=== PATIENT | female | born 1975 | race American Indian/Alaskan Native ===

== ENCOUNTER 2019-09-01 21:33 | Inpatient (IN) | payer SELFPAY ==
[2019-09-02] MEDS ORDERED: ACETAMINOPHEN 325 MG TAB PO ONE (00:04)
--- NOTE | 2019-09-02 00:06 | Emergency Department Report ---
<KRISTOFER JUNIORCAROL Humphreys - Last Filed: 09/02/19 04:58> ED Chest Pain HPI - General Chief Complaint: Chest Pain Stated Complaint: CHEST PAIN COUGH SOB Time Seen by Provider: 09/01/19 23:45 - Related Data Home Medications Medication Instructions Recorded Confirmed Last Taken No Known Home Medications [No 09/05/19 09/05/19 Unknown Reported Home Medications] Allergies Allergy/AdvReac Type Severity Reaction Status Date / Time shellfish derived Allergy Anaphylaxis Verified 09/01/19 22:54 sulfamethoxazole Allergy Anaphylaxis Verified 09/01/19 22:54 [From Bactrim] trimethoprim [From Bactrim] Allergy Anaphylaxis Verified 09/01/19 22:54 ED Past Medical Hx - Medications Home Medications: Home Medications Medication Instructions Recorded Confirmed Last Taken Type No Known Home Medications [No 09/05/19 09/05/19 Unknown History Reported Home Medications] ED Course - Reevaluation(s) Reevaluation #1: Patient was signed out to me from previous physician, Dr. Hsieh. Patient was originally planned for discharge however due to the finding on CT scan of bilateral pneumonia and her elevated WBCs the patient will be admitted to the hospitalist service for further evaluation treatment. I discussed all results with patient. I discussed plan of care with patient. Patient agrees with plan of care and admission. Patient to be admitted to the hospitalist service. 09/02/19 05:00 - Consultations Consultation #1: Hospitalist consulted for admission. Hospitalist to admit patient. 09/02/19 05:01 ED Medical Decision Making - Lab Data Result diagrams: 09/02/19 00:16 09/02/19 00:16 - Radiology Data CT chest wo con INDICATION / CLINICAL INFORMATION: Patient complains of SOB, chest pain x 1 day.. TECHNIQUE: Axial CT imaging of the chest was obtained without contrast. Coronal and sagittal reformatted imaging obtained and reviewed. All CT scans at this location are performed using CT dose reduction for ALARA by means of automated exposure control. COMPARISON: Chest radiograph, 09/02/2019 FINDINGS: CT chest without contrast demonstrates no obvious mediastinal or hilar adenopathy for noncontrasted exam. Thoracic aorta is of normal caliber. Heart size is normal. No pericardial effusion. There is small area of focal airspace disease in the right middle lobe, medial segment. Prominent patchy pulmonary opacities are seen throughout both lower lobes, slightly more prevalent in the right lower lobe. Upper lung zones are grossly clear. No pleural effusion. Imaging of the upper abdomen is grossly negative. No acute osseous abnormality. IMPRESSION: 1. There is focal parenchymal disease in the right middle lobe as well as di ffuse patchy parenchymal disease throughout both lower lobes, greater in the right lung base. The appearance is most suggestive for a multifocal bilateral pneumonia. TECHNICAL DATA: Inhaled administration followed by immediate static images of chest in multiple projections coordinated with breathing instructions. Followed by immediate static images of chest in multiple projections post- I.V. injection. ADDITIONAL TECHNICAL DATA: 16 millicuries of 133 Xenon is administered by inhalation. Pulmonary wash-in, equilibrium, and washout phases are performed. Then, 4.6 millicuries of 99m Tc MAA is administered intravenously. FINDINGS: Ventilation scan demonstrates normal wash-in equilibrium and washout. There is significant retention throughout both lung bases.. Perfusion scan demonstrates homogeneous uptake throughout both lungs. There are defects within both bases consistent with parenchymal disease noted on chest CT scan. IMPRESSION: Matched defects in both lung bases. Low probability for pulmonary thromboembolism. ED Disposition Clinical Impression: Bronchitis, Shortness of breath Chest pain Qualifiers: Chest pain type: unspecified Qualified Code(s): R07.9 - Chest pain, unspecified Pneumonia Qualifiers: Pneumonia type: due to unspecified organism Laterality: bilateral Lung location: unspecified part of lung Qualified Code(s): J18.9 - Pneumonia, unspecified organism Disposition: OP ADMIT IP TO THIS HOSP Is pt being admited?: Yes Does the pt Need Aspirin: No Condition: Serious Time of Disposition: 05:03 <JOE ISSA - Last Filed: 09/06/19 06:13> ED Chest Pain HPI - General Source: patient Mode of arrival: Ambulatory Limitations: No Limitations - History of Present Illness Initial Comments: 44-year-old -[place] female presents to the emergency department with complaint of a one-week history of a productive cough with greenish-yellow sputum, and a 1 day history of some midsternal chest pain and shortness of breath. She has a past medical history of hypertension and GERD. She is a tobacco smoker but denies any illicit drug use. She has tried some DayQuil for his symptoms without any relief. No recent international travel but she did fly from [place] yesterday. Denies having a primary care physician. Heart Score - HEART Score History: Slightly suspicious EKG: Normal Age: < 45 Risk factors: 1-2 risk factors Troponin: < normal limit HEART Score: 1 - Critical Actions Critical Actions: 0-3 pts:0.9-1.7%risk of adverse cardiac event.Candidate for discharge ED Review of Systems ROS: Stated complaint: CHEST PAIN COUGH SOB Other details as noted in HPI Comment: All other systems reviewed and negative Constitutional: chills, fever Eyes: denies: eye pain, vision change ENT: denies: ear pain, throat pain Respiratory: cough, shortness of breath Cardiovascular: chest pain. denies: palpitations, edema Gastrointestinal: denies: abdominal pain, vomiting Genitourinary: denies: dysuria, discharge Musculoskeletal: denies: back pain, arthralgia Skin: denies: rash, lesions Neurological: denies: headache, weakness ED Past Medical Hx - Past Medical History Previous Medical History?: No - Surgical History Past Surgical History?: No - Social History Smoking Status: Current Every Day Smoker Substance Use Type: Alcohol ED Physical Exam - General Limitations: No Limitations - Other Other exam information: GENERAL: The patient is well-developed well-nourished. HENT: Normocephalic. Atraumatic. Patient has moist mucous membranes. EYES: Extraocular motions are intact. NECK: Supple. Trachea is midline. CHEST/LUNGS: Mild wheezing throughout the chest. No tachypnea or accessory muscle use. Productive cough heard during examination. There is no respiratory distress noted. HEART/CARDIOVASCULAR: Regular. There is mild tachycardia. ABDOMEN: Abdomen is soft, nontender. Patient has normal bowel sounds. There is no abdominal distention. SKIN: Skin is warm and dry. NEURO: The patient is awake, alert, and oriented. The patient is cooperative. The patient has no focal neurologic deficits. Normal speech. MUSCULOSKELETAL: There is no tenderness or deformity. There is no evidence of acute injury. ED Course Vital Signs 09/01/19 09/01/19 09/02/19 22:27 23:12 00:27 Temperature 98.1 F 100.5 F H Pulse Rate 107 H 106 H Respiratory 18 Rate Blood Pressure 135/84 O2 Sat by Pulse 100 98 97 Oximetry 09/02/19 09/02/19 09/02/19 00:30 00:51 01:00 Temperature Pulse Rate Respiratory 18 Rate Blood Pressure 134/87 130/80 O2 Sat by Pulse 97 97 Oximetry 09/02/19 09/02/19 09/02/19 01:30 02:00 02:30 Temperature Pulse Rate Respiratory Rate Blood Pressure 125/76 133/82 136/76 O2 Sat by Pulse 97 97 Oximetry 09/02/19 09/02/19 09/02/19 04:10 04:30 05:00 Temperature Pulse Rate Respiratory Rate Blood Pressure 133/82 117/78 120/79 O2 Sat by Pulse 99 97 95 Oximetry 09/02/19 09/02/19 09/02/19 05:30 06:00 06:20 Temperature Pulse Rate 96 H Respiratory 22 Rate Blood Pressure 122/81 120/72 O2 Sat by Pulse 97 97 96 Oximetry 09/02/19 09/02/19 09/02/19 06:30 06:40 06:50 Temperature Pulse Rate 89 89 89 Respiratory 25 H 27 H 24 Rate Blood Pressure 124/85 124/85 124/85 O2 Sat by Pulse 97 95 97 Oximetry 09/02/19 09/02/19 09/02/19 07:00 07:10 07:20 Temperature Pulse Rate 89 88 90 Respiratory 27 H 24 21 Rate Blood Pressure 124/78 124/78 124/78 O2 Sat by Pulse 97 97 96 Oximetry 09/02/19 09/02/19 09/02/19 07:30 07:40 07:50 Temperature Pulse Rate 89 87 97 H Respiratory 25 H 25 H 20 Rate Blood Pressure 121/84 121/84 121/84 O2 Sat by Pulse 98 98 96 Oximetry 09/02/19 09/02/19 09/02/19 08:00 08:10 08:20 Temperature Pulse Rate 96 H 89 83 Respiratory 24 29 H 29 H Rate Blood Pressure 132/84 132/84 132/84 O2 Sat by Pulse 93 94 99 Oximetry 09/02/19 09/02/19 09/02/19 08:30 08:40 08:50 Temperature Pulse Rate 82 87 85 Respiratory 29 H 24 27 H Rate Blood Pressure 127/81 127/81 127/81 O2 Sat by Pulse 96 96 Oximetry 09/02/19 09/02/19 09/02/19 09:00 09:10 09:37 Temperature 98.9 F Pulse Rate 99 H 89 90 Respiratory 21 27 H 20 Rate Blood Pressure 129/87 129/87 123/85 O2 Sat by Pulse 100 94 96 Oximetry MIGUEL score - Miguel Score Age > 65: (0) No Aspirin use within the Past 7 Days: (0) No 3 or more CAD Risk Factors: (0) No 2 or more Angina events in past 24 hrs: (1) Yes Known CAD with more than 50% Stenosis: (0) No Elevated Cardiac Markers: (0) No ST Deviation Greater than 0.5mm: (0) No MIGUEL Score: 1 ED Medical Decision Making - Lab Data Result diagrams: 09/05/19 04:08 09/05/19 04:08 - EKG Data -: EKG Interpreted by Me EKG shows normal: sinus rhythm, axis, intervals, QRS complexes, ST-T waves Rate: normal - EKG Data When compared to previous EKG there are: previous EKG unavailable Interpretation: normal EKG - Radiology Data Radiology results: image reviewed interpreted by me: Chest x-ray does not show any acute process. There are no pleural effusions, obvious pneumonia and there is no pneumothorax. - Medical Decision Making This patient presents with a one-week history of a productive cough and a 24- hour history of some intermittent chest pains and shortness of breath. The pa tiejaylen has some mild wheezing and a auditory productive cough but does not appear in any respiratory distress. She presents with a low-grade fever. An EKG was done that does not show any signs of ST elevation [place]. Chest x-ray does not show any obvious pneumonia, pleural effusions, pneumothorax, or any other acute process. Patient has a 23,000 white blood cell count. Normal metabolic panel. Negative troponin x1 thus far. She has an elevated d-dimer level of about 800. She will have a VQ scan to rule out pulmonary embolism secondary to a shellfish allergy with anaphylactic reaction. The patient will also have a CT scan of the chest without contrast. This patient has been signed out to my colleague, Dr. Greene, to follow the imaging studies and assist with disposition. - Differential Diagnosis Sepsis, CAP, Viral Pneumonia, Bronchitis Critical Care Time: No Critical care attestation.: If time is entered above; I have spent that time in minutes in the direct care of this critically ill patient, excluding procedure time. ED Disposition Is pt being admited?: Yes Time of Disposition: 02:57
--- NOTE | 2019-09-02 00:50 | XRay Report ---
CHEST 1 VIEW INDICATION / CLINICAL INFORMATION: CP. COMPARISON: None available. FINDINGS: SUPPORT DEVICES: None. HEART / MEDIASTINUM: No significant abnormality. LUNGS / PLEURA: There is mild interstitial prominence bilaterally. This is probably pulmonary vascula r congestion. No evidence for pneumonia or significant pleural effusion. No pneumothorax. ADDITIONAL FINDINGS: There is a skinfold overlying the right upper lung simulating a pneumothorax. IMPRESSION: 1. Mild pulmonary vascular congestion. Signer Name: Faith Brasher MD Signed: 09/02/2019 12:46 AM Workstation Name: [id number]
[2019-09-02] MEDS ORDERED: MORPHINE 4 MG/1 ML INJ IV ONE (00:51)
[2019-09-02 00:56] LABS: Hematocrit 33.7 % (30.3-42.9); Mean Corpuscular HGB Conc 33 % (30-34); Mean Corpuscular Volume 86 fl (79-97); Platelet Count 430 K/mm3 (140-440); Red Blood Count 3.91 M/mm3 (3.65-5.03); Red Cell Distribution Width 15.8 % (13.2-15.2)
[2019-09-02 01:05] LABS: BUN/Creatinine Ratio 10; Blood Urea Nitrogen 7 mg/dL (7-17); Calcium 9.3 mg/dL (8.4-10.2); Hemolysis Index 0
[2019-09-02] MEDS ORDERED: guaiFENesin/CODEINE 100-10MG ORAL LIQD 5 ML PO ONE (01:57)
[2019-09-02] MEDS ORDERED: cefTRIAXone/NS 1 GM/50 ML 1 GM/50 ML BAG IV ONE (02:07)
[2019-09-02] MEDS ORDERED: AZITHROMYCIN 500 MG in SODIUM CHLORIDE 0.9% 250ML 250 ML IV ONE (02:47)
--- NOTE | 2019-09-02 03:27 | Cat Scan Report ---
CT chest wo con INDICATION / CLINICAL INFORMATION: Patient complains of SOB, chest pain x 1 day.. TECHNIQUE: Axial CT imaging of the chest was obtained without contrast. Coronal and sagittal reformatted imaging obtained and reviewed. All CT scans at this location are performed using CT dose reduction for ALAR A by means of automated exposure control. COMPARISON: Chest radiograph, 09/02/2019 FINDINGS: CT chest without contrast demonstrates no obvious mediastinal or hilar adenopathy for noncontrasted e xam. Thoracic aorta is of normal caliber. Heart size is normal. No pericardial effusion. There is small area of focal airspace disease in the right middle lobe, medial segment. Prominent pat jonnathan pulmonary opacities are seen throughout both lower lobes, slightly more prevalent in the right lo wer lobe. Upper lung zones are grossly clear. No pleural effusion. Imaging of the upper abdomen is grossly negative. No acute osseous abnormality. IMPRESSION: 1. There is focal parenchymal disease in the right middle lobe as well as diffuse patchy parenchymal disease throughout both lower lobes, greater in the right lung base. The appearance is most suggestiv e for a multifocal bilateral pneumonia. Signer Name: Faith Brasher MD Signed: 09/02/2019 3:22 AM Workstation Name: [id number]
--- NOTE | 2019-09-02 03:59 | Nuclear Medicine Report ---
CLINICAL DATA: Shortness of breath elevated d-dimer TECHNICAL DATA: Inhaled administration followed by immediate static images of chest in multiple projections coordinat ed with breathing instructions. Followed by immediate static images of chest in multiple projections post- I.V. injection. ADDITIONAL TECHNICAL DATA: 16 millicuries of 133 Xenon is administered by inhalation. Pulmonary wash-in, equilibrium, and washout phases are performed. Then, 4.6 millicuries of 99m Tc MAA is administered intravenously. FINDINGS: Ventilation scan demonstrates normal wash-in equilibrium and washout. There is significant retention throughout both lung bases.. Perfusion scan demonstrates homogeneous uptake throughout both lungs. There are defects within both b ases consistent with parenchymal disease noted on chest CT scan. IMPRESSION: Matched defects in both lung bases. Low probability for pulmonary thromboembolism. Signer Name: Faith Brasher MD Signed: 09/02/2019 3:55 AM Workstation Name: [id number]
[2019-09-02 04:06] LABS: Basophils % (Manual) 0 % (0.0-1.8); Eosinophils % (Manual) 0 % (0.0-4.3); Total Cells Counted 200
[2019-09-02 04:07] LABS: Anisocytosis 1+; Platelet Estimate Consistent w Auto
--- NOTE | 2019-09-02 05:22 | History and Physical Report ---
History of Present Illness History of present illness: 44-year-old woman history of hypertension comes emergency room with complaints of cough, fever. Patient states she has been coughing for the last 8 days, sputum became productive of yellow phlegm over the last 4 days, also complain of shortness of breath, fever. She traveled from [place] on Friday Patient will be admitted for multifocal pneumonia Review Of Systems: Constitutional: no weight loss, fever, chills Ears, eyes, nose, mouth and throat: no nasal congestion, no nasal discharge, no sinus pressure, blurry vision, diplopia Neck: No neck pain or rigidity. Cardiovascular: No palpitations, chest pain Respiratory:+o shortness of breath, cough Gastrointestinal: No hematochezia Genitourinary : no dysuria, frequency Musculoskeletal: no muscle ache , joint pain Integumentary: no rash, no pruritis Neurological: no parathesias, focal weakness Endocrine: no cold or heat intolerance, no polyuria or polydipsia Hematologic/Lymphatic: no easy bruising, no easy bleeding, no gland swelling Allergic/Immunologic: no urticaria, no angioedema. PAST MEDICAL HISTORY: Hypertension PAST SURGICAL HISTORY: None SOCIAL HISTORY: Social alcohol, smokes 1/3 pack a day, no drugs FAMILY HISTORY: Hypertension Medications and Allergies Allergies Allergy/AdvReac Type Severity Reaction Status Date / Time shellfish derived Allergy Anaphylaxis Verified 09/01/19 22:54 sulfamethoxazole Allergy Anaphylaxis Verified 09/01/19 22:54 [From Bactrim] trimethoprim [From Bactrim] Allergy Anaphylaxis Verified 09/01/19 22:54 Exam - Physical Exam Narrative exam: Gen. appearance: Patient lying in bed, no apparent distress HEENT: Normocephalic, atraumatic, pupils equally round and reactive to light, extraocular movement intact, and no sclericterus,. No JVD or thyromegaly or nodule,neck supple, no carotid bruit ,mucous membranes moist, no exudate or erythema Heart: S1, S2, regular rate and rhythm Lungs: Crackles bilaterally, breathing comfortable Abdomen: Positive bowel sounds, nontender, nondistended, no organomegaly Extremity: no edema, cyanosis, clubbing Skin: No rash, nodules, warm, dry Neuro: Cranial nerves II to XII intact, speech is fluent, moves extremities, sensory intact - Constitutional Vitals: Temp Pulse Resp BP Pulse Ox 100.5 F H 106 H 18 135/84 98 09/01/19 23:12 09/01/19 23:12 09/01/19 22:27 09/01/19 22:27 09/01/19 23:12 Results - Labs CBC & Chem 7: 09/02/19 00:16 09/02/19 00:16 Labs: Abnormal lab results 09/02/19 09/02/19 09/02/19 Range/Units 00:16 00:16 00:16 WBC 23.4 H (4.5-11.0) K/mm3 RDW 15.8 H (13.2-15.2) % Seg Neuts % (Manual) 93.5 H (40.0-70.0) % Lymphocytes % (Manual) 3.5 L (13.4-35.0) % Seg Neutrophils # Man 21.9 H (1.8-7.7) K/mm3 Lymphocytes # (Manual) 0.8 L (1.2-5.4) K/mm3 D-Dimer 801.37 H (0-234) ng/mlDDU Sodium 134 L (137-145) mmol/L Chloride 95.9 L (98-107) mmol/L Glucose 107 H (65-100) mg/dL - Imaging and Cardiology EKG: image reviewed Chest x-ray: report reviewed CT scan - chest: report reviewed Assessment and Plan V/Q low probability for PE Assessment Bilateral multifocal pneumonia Start Rocephin, azithromycin, droplet precautions Consult ID, nebulizer treatment Hypertension Continue outpatient medications DVT prophylaxis
[2019-09-02] MEDS ORDERED: ONDANSETRON 4 MG/2 ML INJ IV PRN (06:17)
[2019-09-02 07:28] LABS: Hematocrit 33.6 % (30.3-42.9); Hemoglobin 10.9 gm/dl (10.1-14.3); Mean Corpuscular HGB Conc 32 % (30-34); Mean Corpuscular Volume 86 fl (79-97); Platelet Count 395 K/mm3 (140-440); Red Blood Count 3.89 M/mm3 (3.65-5.03); Red Cell Distribution Width 15.8 % (13.2-15.2)
[2019-09-02 07:41] LABS: BUN/Creatinine Ratio 8; Blood Urea Nitrogen 5 mg/dL (7-17); Calcium 8.5 mg/dL (8.4-10.2); Hemolysis Index 7
--- NOTE | 2019-09-02 08:18 | Progress Note ---
Assessment and Plan Assessment and plan: Patient is a 44 yo woman with a history of hypertension and tobacco dependency who presents with sob, cough and fever. She travelled from [place] to [place] on Friday. Patient qualifies for sepsis. * 100.5F, WBC 23.4, HR 106, D-Dimer 801.37 * pCXR IMPRESSION: 1. Mild pulmonary vascular congestion. * CT chest without contrast IMPRESSION: 1. There is focal parenchymal disease in the right middle lobe as well as diffuse patchy parenchymal disease throughout both lower lobes, greater in the right lung base. The appearance is most suggestive for a multifocal bilateral pneumonia. * V/Q IMPRESSION: Matched defects in both lung bases. Low probability for pulmonary thromboembolism. * Rapid flu negative Bilateral multifocal pneumonia with SEPSIS, poa: Start Rocephin, azithromycin, droplet precautions, ID consulted as rule out Coronovirus, in droplet precautions, nebulizer treatment, FLU pcr ordered, follow cultures Hypertension: Continue outpatient medications DVT prophylaxis reviewed History Interval history: Patient was seen and examined. Follow-up on current diagnosis of Pneumonia. Overnight uneventful as no events directly reported to me. Patient denies any chest pain, shortness breath, nausea/vomiting or severe headaches. Imaging, nursing note, chart, labs and old chart reviewed. Discussed with patient. Hospitalist Physical - Physical exam Narrative exam: Gen: WDWN, ill appearing, Awake, Alert, Orientated HEENT: NCAT, EOMI, PERRL, OP Clear Neck: supple, no adenopathy, no thyromegaly, no JVD CVS/Heart: RT, normal S1S2, pulses present bilaterally Chest/Lungs: diminished bs bilaterally, Symmetrical chest expansion, good air entry bilaterally GI/Abdomen: soft, NTND, good bowel sounds, no guarding or rebound /Bladder: no suprapubic tenderness, no CVA or paraspinal tenderness Extermity/Skin: no c/c/e, no obvious rash MSK: FROM x 4 Neuro: CN 2-12 grossly intact, no new focal deficits Psych: calm - Constitutional Vitals: Temp Pulse Resp BP Pulse Ox 100.5 F H 106 H 18 120/72 97 09/01/19 23:12 09/01/19 23:12 09/02/19 00:51 09/02/19 06:00 09/02/19 06:00 ILIANA score - Iliana Score Age > 65: (0) No Aspirin use within the Past 7 Days: (0) No 3 or more CAD Risk Factors: (0) No 2 or more Angina events in past 24 hrs: (1) Yes Known CAD with more than 50% Stenosis: (0) No Elevated Cardiac Markers: (0) No ST Deviation Greater than 0.5mm: (0) No ILIANA Score: 1 Results - Labs CBC & Chem 7: 09/02/19 07:00 09/02/19 07:00 Labs: Laboratory Last Values WBC 24.0 K/mm3 (4.5-11.0) H 09/02/19 07:00 RBC 3.89 M/mm3 (3.65-5.03) 09/02/19 07:00 Hgb 10.9 gm/dl (10.1-14.3) 09/02/19 07:00 Hct 33.6 % (30.3-42.9) 09/02/19 07:00 MCV 86 fl (79-97) 09/02/19 07:00 MCH 28 pg (28-32) 09/02/19 07:00 MCHC 32 % (30-34) 09/02/19 07:00 RDW 15.8 % (13.2-15.2) H 09/02/19 07:00 Plt Count 395 K/mm3 (140-440) 09/02/19 07:00 Add Manual Diff Complete 09/02/19 00:16 Total Counted 200 09/02/19 00:16 Seg Neuts % (Manual) 93.5 % (40.0-70.0) H 09/02/19 00:16 Band Neutrophils % 0 % 09/02/19 00:16 Lymphocytes % (Manual) 3.5 % (13.4-35.0) L 09/02/19 00:16 Reactive Lymphs % (Man) 0 % 09/02/19 00:16 Monocytes % (Manual) 3.0 % (0.0-7.3) 09/02/19 00:16 Eosinophils % (Manual) 0 % (0.0-4.3) 09/02/19 00:16 Basophils % (Manual) 0 % (0.0-1.8) 09/02/19 00:16 Metamyelocytes % 0 % 09/02/19 00:16 Myelocytes % 0 % 09/02/19 00:16 Promyelocytes % 0 % 09/02/19 00:16 Blast Cells % 0 % 09/02/19 00:16 Nucleated RBC % Not Reportable 09/02/19 00:16 Seg Neutrophils # Man 21.9 K/mm3 (1.8-7.7) H 09/02/19 00:16 Band Neutrophils # 0.0 K/mm3 09/02/19 00:16 Lymphocytes # (Manual) 0.8 K/mm3 (1.2-5.4) L 09/02/19 00:16 Abs React Lymphs (Man) 0.0 K/mm3 09/02/19 00:16 Monocytes # (Manual) 0.7 K/mm3 (0.0-0.8) 09/02/19 00:16 Eosinophils # (Manual) 0.0 K/mm3 (0.0-0.4) 09/02/19 00:16 Basophils # (Manual) 0.0 K/mm3 (0.0-0.1) 09/02/19 00:16 Metamyelocytes # 0.0 K/mm3 09/02/19 00:16 Myelocytes # 0.0 K/mm3 09/02/19 00:16 Promyelocytes # 0.0 K/mm3 09/02/19 00:16 Blast Cells # 0.0 K/mm3 09/02/19 00:16 WBC Morphology Not Reportable 09/02/19 00:16 Hypersegmented Neuts Not Reportable 09/02/19 00:16 Hyposegmented Neuts Not Reportable 09/02/19 00:16 Hypogranular Neuts Not Reportable 09/02/19 00:16 Smudge Cells Not Reportable 09/02/19 00:16 Toxic Granulation Not Reportable 09/02/19 00:16 Toxic Vacuolation Not Reportable 09/02/19 00:16 Dohle Bodies Not Reportable 09/02/19 00:16 Pelger-Huet Anomaly Not Reportable 09/02/19 00:16 Bipin Rods Not Reportable 09/02/19 00:16 Platelet Estimate Consistent w auto 09/02/19 00:16 Clumped Platelets Not Reportable 09/02/19 00:16 Plt Clumps, EDTA Not Reportable 09/02/19 00:16 Large Platelets Not Reportable 09/02/19 00:16 Giant Platelets Not Reportable 09/02/19 00:16 Platelet Satelliting Not Reportable 09/02/19 00:16 Plt Morphology Comment Not Reportable 09/02/19 00:16 RBC Morphology Not Reportable 09/02/19 00:16 Dimorphic RBCs Not Reportable 09/02/19 00:16 Polychromasia Not Reportable 09/02/19 00:16 Hypochromasia Not Reportable 09/02/19 00:16 Poikilocytosis Not Reportable 09/02/19 00:16 Anisocytosis 1+ 09/02/19 00:16 Microcytosis Not Reportable 09/02/19 00:16 Macrocytosis Not Reportable 09/02/19 00:16 Spherocytes Not Reportable 09/02/19 00:16 Pappenheimer Bodies Not Reportable 09/02/19 00:16 Sickle Cells Not Reportable 09/02/19 00:16 Target Cells Not Reportable 09/02/19 00:16 Tear Drop Cells Not Reportable 09/02/19 00:16 Ovalocytes Not Reportable 09/02/19 00:16 Helmet Cells Not Reportable 09/02/19 00:16 V[place] Bodies Not Reportable 09/02/19 00:16 [place] Rings Not Reportable 09/02/19 00:16 [place] Cells Not Reportable 09/02/19 00:16 Bite Cells Not Reportable 09/02/19 00:16 Crenated Cell Not Reportable 09/02/19 00:16 Elliptocytes Not Reportable 09/02/19 00:16 Acanthocytes (Spur) Not Reportable 09/02/19 00:16 Rouleaux Not Reportable 09/02/19 00:16 Hemoglobin C Crystals Not Reportable 09/02/19 00:16 Schistocytes Not Reportable 09/02/19 00:16 Malaria parasites Not Reportable 09/02/19 00:16 Devante Bodies Not Reportable 09/02/19 00:16 Hem Pathologist Commnt No 09/02/19 00:16 D-Dimer 801.37 ng/mlDDU (0-234) H 09/02/19 00:16 Sodium 134 mmol/L (137-145) L 09/02/19 07:00 Potassium 3.9 mmol/L (3.6-5.0) 09/02/19 07:00 Chloride 99.0 mmol/L (98-107) 09/02/19 07:00 Carbon Dioxide 22 mmol/L (22-30) 09/02/19 07:00 Anion Gap 17 mmol/L 09/02/19 07:00 BUN 5 mg/dL (7-17) L 09/02/19 07:00 Creatinine 0.6 mg/dL (0.7-1.2) L 09/02/19 07:00 Estimated GFR > 60 ml/min 09/02/19 07:00 BUN/Creatinine Ratio 8 % 09/02/19 07:00 Glucose 97 mg/dL (65-100) 09/02/19 07:00 Lactic Acid 0.80 mmol/L (0.7-2.0) 09/02/19 02:21 Calcium 8.5 mg/dL (8.4-10.2) 09/02/19 07:00 Troponin T < 0.010 ng/mL (0.00-0.029) 09/02/19 03:39 NT-Pro-B Natriuret Pep 46.87 pg/mL (0-450) 09/02/19 00:56 HCG, Qual Negative (Negative) 09/02/19 00:16 Influenza A (Rapid) Negative (Negative) 09/02/19 Unknown Influenza B (Rapid) Negative (Negative) 09/02/19 Unknown [place]/IV: IV Catheter Type [Right INT / Saline Lock Antecubital] IV Catheter Type [Right Hand] INT / Saline Lock Active Medications - Current Medications Current Medications: Generic Name Dose Route Start Last Admin Trade Name Freq PRN Reason Stop Dose Admin Acetaminophen 650 mg 09/02/19 06:17 Tylenol PO Q4H PRN Pain MILD(1-3)/Fever >100.5/GAMBINO Albuterol/Ipratropium 1 ampul 09/02/19 08:00 Duoneb *Not For Prn Use* IH Q6HRT [facility] Azithromycin 500 mg 09/02/19 10:00 Zithromax PO DAILY [facility] Enoxaparin Sodium 40 mg 09/02/19 10:00 Enoxaparin SUB-Q QDAY [facility] Ceftriaxone Sodium 1 gm in 50 mls @ 100 mls/hr 09/02/19 10:00 Rocephin/Ns 1 Gm/50 Ml IV Q24HR [facility] Protocol Ondansetron HCl 4 mg 09/02/19 06:17 Zofran IV Q8H PRN Nausea And Vomiting Sodium Chloride 10 ml 09/02/19 10:00 Sodium Chloride Flush Syringe 10 Ml IV BID [facility] Sodium Chloride 10 ml 09/02/19 06:17 Sodium Chloride Flush Syringe 10 Ml IV PRN PRN LINE FLUSH
[2019-09-02 08:26] LABS: Band Neutrophils # (Manual) 0.2 K/mm3; Basophils % (Manual) 0 % (0.0-1.8); Eosinophils % (Manual) 0 % (0.0-4.3); Total Cells Counted 100
[2019-09-02 08:27] LABS: Platelet Estimate Consistent w Auto
[2019-09-02] MEDS: IPRATROPIUM/ALBUTEROL SULFATE 3 ML AMPUL.NEB IH SCH ×3 (09:19→20:39)
[2019-09-02] MEDS: AZITHROMYCIN 250 MG TAB PO SCH (11:21)
[2019-09-02] MEDS: ENOXAPARIN 40 MG/0.4 ML INJ SUB-Q SCH (11:22)
[2019-09-02] MEDS: cefTRIAXone/NS 1 GM/50 ML 1 GM/50 ML BAG IV SCH (12:18)
[2019-09-02] MEDS: ACETAMINOPHEN 325 MG TAB PO PRN (15:38)
[2019-09-02] MEDS ORDERED: VANCOMYCIN 1,500 MG in SODIUM CHLORIDE 0.9% 500 ML 500 ML IV ONE (16:12)
--- NOTE | 2019-09-02 16:16 | Consultation ---
History of Present Illness - Reason for Consult Consult date: 09/02/19 Sepsis, pneumonia Requesting physician: MICHAEL TIRADO - History of Present Illness The patient is a 44-year-old female with hypertension who is originally from [place] came into the emergency room yesterday with complaints of cough, fever and shortness of breath. Her symptoms have been going on for almost 2 weeks and gradually worsening. She is now producing yellow-greenish sputum and also having shortness of breath. She denies having received a flu shot. She is a smoker, 1 pack of cigarettes lasts her 3 days. She had a fever of 100.[address] revealed a bilateral pneumonia but mainly on the right side. WBC shows leukocytosis. She lives in [place]. She is a student. States her niece was recently sick. Review of Systems: General: fever, chills HEENT: no new visual disturbance Respiratory: + cough, sputum, shortness of breath Cardiovascular: No chest pain, syncope Gastrointestinal: No nausea, vomiting or diarrhea Genitourinary: No dysuria or hematuria Musculoskeletal: No new or worsening neck pain or back pain Neurologic: No headaches, seizures Hematologic: No easy bruising or bleeding Endocrine: No night sweats or acute weight loss Skin: negative for rash, jaundice Psychiatric: No suicidal or homicidal ideation Medications and Allergies Allergies Allergy/AdvReac Type Severity Reaction Status Date / Time shellfish derived Allergy Anaphylaxis Verified 09/01/19 22:54 sulfamethoxazole Allergy Anaphylaxis Verified 09/01/19 22:54 [From Bactrim] trimethoprim [From Bactrim] Allergy Anaphylaxis Verified 09/01/19 22:54 Active Meds: Active Medications Acetaminophen (Tylenol) 650 mg PO Q4H PRN PRN Reason: Pain MILD(1-3)/Fever >100.5/GAMBINO Last Admin: 09/02/19 15:38 Dose: 650 mg Documented by: Albuterol/Ipratropium (Duoneb *Not For Prn Use*) 1 ampul IH Q6HRT [facility] Last Admin: 09/02/19 13:36 Dose: 1 ampul Documented by: Azithromycin (Zithromax) 500 mg PO DAILY [facility] Stop: 09/06/19 10:01 Last Admin: 09/02/19 11:21 Dose: 500 mg Documented by: Benzonatate (Tessalon Perles) 100 mg PO Q8HR [facility] Enoxaparin Sodium (Enoxaparin) 40 mg SUB-Q QDAY [facility] Last Admin: 09/02/19 11:22 Dose: 40 mg Documented by: Ceftriaxone Sodium (Rocephin/Ns 1 Gm/50 Ml) 1 gm in 50 mls @ 100 mls/hr IV Q24HR [facility]; Protocol Last Admin: 09/02/19 12:18 Dose: 100 mls/hr Documented by: Vancomycin HCl 1,500 mg/ (Sodium Chloride) 530 mls @ 333 mls/hr IV ONCE ONE; P rotocol Stop: 09/02/19 17:47 Ondansetron HCl (Zofran) 4 mg IV Q8H PRN PRN Reason: Nausea And Vomiting Sodium Chloride (Sodium Chloride Flush Syringe 10 Ml) 10 ml IV BID [facility] Last Admin: 09/02/19 11:22 Dose: 10 ml Documented by: Sodium Chloride (Sodium Chloride Flush Syringe 10 Ml) 10 ml IV PRN PRN PRN Reason: LINE FLUSH Physical Examination - Physical Exam Narrative exam: Physical Exam: Constitutional: Alert, cooperative. No acute distress Head, Ears, Nose: Normocephalic, atraumatic. External ears, nose normal Eyes: Conjunctivae/corneas clear. No icterus. No ptosis. Neck: Supple, no meningeal signs Cardiovascular: S1, S2 normal. Respiratory: b/l rhonchi GI: Soft, non-tender; bowel sounds normal. No peritoneal signs Musculoskeletal: No pedal edema, no cyanosis. Skin: No rash or abscess Hem/Lymphatic: No palpable cervical or supraclavicular nodes. No lymphangitis Psych: Mood ok. Affect normal Neurological: Awake, alert, oriented. No gross abnormality - Constitutional Vitals: Vital Signs Temp Pulse Resp BP Pulse Ox 98.7 F 95 H 16 124/80 98 09/02/19 15:18 09/02/19 15:18 09/02/19 15:18 09/02/19 15:18 09/02/19 15:18 Temperature -Last 24 Hours Temperature 98.7 F Temperature 98.9 F Temperature 100.5 F Temperature 98.1 F Results - Labs CBC & Chem 7: 09/02/19 07:00 09/02/19 07:00 Labs: Abnormal lab results 09/02/19 09/02/19 09/02/19 Range/Units 00:16 00:16 00:16 WBC 23.4 H (4.5-11.0) K/mm3 RDW 15.8 H (13.2-15.2) % Seg Neuts % (Manual) 93.5 H (40.0-70.0) % Lymphocytes % (Manual) 3.5 L (13.4-35.0) % Seg Neutrophils # Man 21.9 H (1.8-7.7) K/mm3 Lymphocytes # (Manual) 0.8 L (1.2-5.4) K/mm3 D-Dimer 801.37 H (0-234) ng/mlDDU Sodium 134 L (137-145) mmol/L Chloride 95.9 L (98-107) mmol/L BUN (7-17) mg/dL Creatinine (0.7-1.2) mg/dL Glucose 107 H (65-100) mg/dL 09/02/19 09/02/19 Range/Units 07:00 07:00 WBC 24.0 H (4.5-11.0) K/mm3 RDW 15.8 H (13.2-15.2) % Seg Neuts % (Manual) 93.0 H (40.0-70.0) % Lymphocytes % (Manual) 2.0 L (13.4-35.0) % Seg Neutrophils # Man 22.3 H (1.8-7.7) K/mm3 Lymphocytes # (Manual) 0.5 L (1.2-5.4) K/mm3 D-Dimer (0-234) ng/mlDDU Sodium 134 L (137-145) mmol/L Chloride (98-107) mmol/L BUN 5 L (7-17) mg/dL Creatinine 0.6 L (0.7-1.2) mg/dL Glucose (65-100) mg/dL - Imaging and Cardiology CT scan - chest: report reviewed, image reviewed (R middle lobe pneumonia, additional b/l bases with patchy infiltrates) Assessment and Plan Cultures: None yet Rapid Flu negative A/P: 44-year-old female with hypertension who is originally from [place] came into the emergency room yesterday with complaints of cough, fever and shortness of breath. Her symptoms have been going on for almost 2 weeks and gradually worsening: #Sepsis secondary to pneumonia: Symptoms present for 14 days and gradually worsening. Concerning for possible post influenza pneumonia. Recs: Blood cultures ordered Continue ceftriaxone and azithromycin IV Vancomycin added to cover for post influenza pneumonia Low suspicion for coronavirus or a viral pneumonia at this time Sputum culture ordered Legionella and pneumococcal urinary antigens ordered Continue contact and droplet precautions for now. If she does not respond to the above treatment, may have to request COVID-19 evaluation d/w Dr. Clark Babin MD, FACP [facility] [place] C: [phone] O: [phone] F: [phone]
[2019-09-02] MEDS: BENZONATATE 100 MG CAP PO SCH ×2 (16:36→22:29)
[2019-09-02] MEDS ORDERED: VANCOMYCIN PHARMACY TO DOSE IV SCH (17:00)
[2019-09-03] MEDS: IPRATROPIUM/ALBUTEROL SULFATE 3 ML AMPUL.NEB IH SCH ×4 (03:15→19:25)
[2019-09-03] MEDS: VANCOMYCIN 1,250 MG in SODIUM CHLORIDE 0.9% 250ML 250 ML IV SCH ×2 (05:45→17:54)
[2019-09-03] MEDS: BENZONATATE 100 MG CAP PO SCH ×2 (05:45→17:54)
[2019-09-03 08:32] LABS: Basophils # (Auto) 0.1 K/mm3 (0.0-0.1); Basophils % (Auto) 0.4 % (0.0-1.8); Eosinophils # (Auto) 0.2 K/mm3 (0.0-0.4); Eosinophils % (Auto) 1.3 % (0.0-4.3); Hematocrit 32.9 % (30.3-42.9); Hemoglobin 10.6 gm/dl (10.1-14.3); Lymphocytes # (Auto) 1.7 K/mm3 (1.2-5.4); Lymphocytes % (Auto) 11.4 % (13.4-35.0); Mean Corpuscular HGB Conc 32 % (30-34); Mean Corpuscular Volume 86 fl (79-97); Monocytes % (Auto) 6.6 % (0.0-7.3); Platelet Count 435 K/mm3 (140-440); Red Blood Count 3.84 M/mm3 (3.65-5.03); Red Cell Distribution Width 15.5 % (13.2-15.2)
[2019-09-03] MEDS: ENOXAPARIN 40 MG/0.4 ML INJ SUB-Q SCH (10:42)
[2019-09-03] MEDS: cefTRIAXone/NS 1 GM/50 ML 1 GM/50 ML BAG IV SCH (10:42)
[2019-09-03] MEDS: AZITHROMYCIN 250 MG TAB PO SCH (10:42)
[2019-09-03] MEDS: ACETAMINOPHEN 325 MG TAB PO PRN (11:46)
--- NOTE | 2019-09-03 15:14 | Progress Note ---
Assessment and Plan Cultures: blood culture: in process Rapid Flu negative A/P: 44-year-old female with hypertension who is originally from [place] came into the emergency room yesterday with complaints of cough, fever and shortness of breath. Her symptoms have been going on for almost 2 weeks and gradually wor sening: #Sepsis secondary to pneumonia: Symptoms present for 14 days and gradually worsening. Concerning for possible post influenza pneumonia. Very likely bacterial, improving on current abx. Recs: Continue ceftriaxone, azithromycin, IV Vancomycin Low suspicion for viral pneumonia at this time f/u sputum culture, nasal MRSA PCR, Legionella and pneumococcal urinary antigens Continue contact and droplet precautions for now Zehra Babin MD, FACP [facility] [place] [facility] C: [phone] O: [phone] F: [phone] Subjective Date of service: 09/03/19 Interval history: Breathing better. Fever improving. tolerating abx. Has sputum collected at [facility]. Objective - Exam Narrative Exam: Physical Exam: Constitutional: Alert, cooperative. No acute distress Head, Ears, Nose: Normocephalic, atraumatic. External ears, nose normal Eyes: Conjunctivae/corneas clear. No icterus. No ptosis. Neck: Supple, no meningeal signs Cardiovascular: S1, S2 normal. Respiratory: few b/l rhonchi GI: Soft, non-tender; bowel sounds normal. No peritoneal signs Musculoskeletal: No pedal edema, no cyanosis. Skin: No rash or abscess Hem/Lymphatic: No palpable cervical or supraclavicular nodes. No lymphangitis Psych: Mood ok. Affect normal Neurological: Awake, alert, oriented. No gross abnormality - Constitutional Vitals: Vital Signs Temp Pulse Resp BP Pulse Ox 97.7 F 94 H 20 133/90 97 09/03/19 11:50 09/03/19 14:13 09/03/19 14:13 09/03/19 11:50 09/03/19 11:50 Temperature -Last 24 Hours Temperature 97.7 F Temperature 97.9 F Temperature 98.5 F Temperature 98.7 F - Labs CBC & Chem 7: 09/03/19 08:13 09/02/19 07:00 Labs: Abnormal lab results 09/03/19 Range/Units 08:13 WBC 15.0 H (4.5-11.0) K/mm3 RDW 15.5 H (13.2-15.2) % Lymph % (Auto) 11.4 L (13.4-35.0) % [place] # 1.0 H (0.0-0.8) K/mm3 Seg Neutrophils % 80.3 H (40.0-70.0) % Seg Neutrophils # 12.1 H (1.8-7.7) K/mm3
[2019-09-04] MEDS: BENZONATATE 100 MG CAP PO SCH ×4 (00:30→21:56)
[2019-09-04] MEDS: IPRATROPIUM/ALBUTEROL SULFATE 3 ML AMPUL.NEB IH SCH ×4 (02:35→20:54)
[2019-09-04] MEDS: VANCOMYCIN 1,250 MG in SODIUM CHLORIDE 0.9% 250ML 250 ML IV SCH ×2 (06:18→18:09)
--- NOTE | 2019-09-04 08:45 | Progress Note ---
Assessment and Plan Assessment and plan: Patient is a 44 yo woman with a history of hypertension and tobacco dependency who presents with sob, cough and fever. She travelled from [place] to [place] on Friday. Patient qualifies for sepsis. * 100.5F, WBC 23.4, HR 106, D-Dimer 801.37 * pCXR IMPRESSION: 1. Mild pulmonary vascular congestion. * CT chest without contrast IMPRESSION: 1. There is focal parenchymal disease in the right middle lobe as well as diffuse patchy parenchymal disease throughout both lower lobes, greater in the right lung base. The appearance is most suggestive for a multifocal bilateral pneumonia. * V/Q IMPRESSION: Matched defects in both lung bases. Low probability for pulmonary thromboembolism. * Rapid flu negative --Sepsis secondary to bilateral pneumonia; Continue empiric antibiotics, follow cultures --Bilateral pneumonia; oxygen titrate O2 sats to more than 90%, droplet precautions IV antibiotics, ID following --Leukocytosis; secondary to sepsis, trending down --Hypertension; moderate control Continue current antihypertensives --Elevated D-dimers; negative PE Check lower extremity venous Doppler to rule out DVT --DVT prophylaxis; Lovenox Monitor closely and adjust management as needed Plan of care reviewed with the patient and her nurse History Interval history: Patient seen and examined this morning at the bedside Patient complains of mild shortness of breath and generalized body pains Alert awake oriented, mild distress Vital signs noted Hospitalist Physical - Constitutional Vitals: Temp Pulse Resp BP Pulse Ox 98.4 F 88 20 126/89 96 09/04/19 04:27 09/04/19 04:27 09/04/19 04:27 09/04/19 04:27 09/04/19 04:27 General appearance: Present: mild distress, well-nourished - EENT Eyes: Present: PERRL, EOM intact - Neck Neck: Present: supple, normal ROM - Respiratory Respiratory effort: normal Respiratory: bilateral: diminished, rhonchi, negative: rales, wheezing - Cardiovascular Rhythm: regular Heart Sounds: Present: S1 & S2 - Extremities Extremities: no ischemia, No edema - Abdominal General gastrointestinal: soft, non-tender, non-distended, normal bowel sounds - Integumentary Integumentary: Present: clear, warm - Psychiatric Psychiatric: appropriate mood/affect, cooperative - Neurologic Neurologic: moves all extremities MIGUEL score - Miguel Score Age > 65: (0) No Aspirin use within the Past 7 Days: (0) No 3 or more CAD Risk Factors: (0) No 2 or more Angina events in past 24 hrs: (1) Yes Known CAD with more than 50% Stenosis: (0) No Elevated Cardiac Markers: (0) No ST Deviation Greater than 0.5mm: (0) No MIGUEL Score: 1 Results - Labs CBC & Chem 7: 09/05/19 04:08 09/05/19 04:08 Labs: Laboratory Last Values WBC 15.0 K/mm3 (4.5-11.0) H 09/03/19 08:13 RBC 3.84 M/mm3 (3.65-5.03) 09/03/19 08:13 Hgb 10.6 gm/dl (10.1-14.3) 09/03/19 08:13 Hct 32.9 % (30.3-42.9) 09/03/19 08:13 MCV 86 fl (79-97) 09/03/19 08:13 MCH 28 pg (28-32) 09/03/19 08:13 MCHC 32 % (30-34) 09/03/19 08:13 RDW 15.5 % (13.2-15.2) H 09/03/19 08:13 Plt Count 435 K/mm3 (140-440) 09/03/19 08:13 Lymph % (Auto) 11.4 % (13.4-35.0) L 09/03/19 08:13 [place] % (Auto) 6.6 % (0.0-7.3) 09/03/19 08:13 Eos % (Auto) 1.3 % (0.0-4.3) 09/03/19 08:13 Baso % (Auto) 0.4 % (0.0-1.8) 09/03/19 08:13 Lymph # 1.7 K/mm3 (1.2-5.4) 09/03/19 08:13 [place] # 1.0 K/mm3 (0.0-0.8) H 09/03/19 08:13 Eos # 0.2 K/mm3 (0.0-0.4) 09/03/19 08:13 Baso # 0.1 K/mm3 (0.0-0.1) 09/03/19 08:13 Add Manual Diff Complete 09/02/19 07:00 Total Counted 100 09/02/19 07:00 Seg Neutrophils % 80.3 % (40.0-70.0) H 09/03/19 08:13 Seg Neuts % (Manual) 93.0 % (40.0-70.0) H 09/02/19 07:00 Band Neutrophils % 1.0 % 09/02/19 07:00 Lymphocytes % (Manual) 2.0 % (13.4-35.0) L 09/02/19 07:00 Reactive Lymphs % (Man) 0 % 09/02/19 07:00 Monocytes % (Manual) 3.0 % (0.0-7.3) 09/02/19 07:00 Eosinophils % (Manual) 0 % (0.0-4.3) 09/02/19 07:00 Basophils % (Manual) 0 % (0.0-1.8) 09/02/19 07:00 Metamyelocytes % 1.0 % 09/02/19 07:00 Myelocytes % 0 % 09/02/19 07:00 Promyelocytes % 0 % 09/02/19 07:00 Blast Cells % 0 % 09/02/19 07:00 Nucleated RBC % Not Reportable 09/02/19 07:00 Seg Neutrophils # 12.1 K/mm3 (1.8-7.7) H 09/03/19 08:13 Seg Neutrophils # Man 22.3 K/mm3 (1.8-7.7) H 09/02/19 07:00 Band Neutrophils # 0.2 K/mm3 09/02/19 07:00 Lymphocytes # (Manual) 0.5 K/mm3 (1.2-5.4) L 09/02/19 07:00 Abs React Lymphs (Man) 0.0 K/mm3 09/02/19 07:00 Monocytes # (Manual) 0.7 K/mm3 (0.0-0.8) 09/02/19 07:00 Eosinophils # (Manual) 0.0 K/mm3 (0.0-0.4) 09/02/19 07:00 Basophils # (Manual) 0.0 K/mm3 (0.0-0.1) 09/02/19 07:00 Metamyelocytes # 0.2 K/mm3 09/02/19 07:00 Myelocytes # 0.0 K/mm3 09/02/19 07:00 Promyelocytes # 0.0 K/mm3 09/02/19 07:00 Blast Cells # 0.0 K/mm3 09/02/19 07:00 WBC Morphology Not Reportable 09/02/19 07:00 Hypersegmented Neuts Not Reportable 09/02/19 07:00 Hyposegmented Neuts Not Reportable 09/02/19 07:00 Hypogranular Neuts Not Reportable 09/02/19 07:00 Smudge Cells Not Reportable 09/02/19 07:00 Toxic Granulation Not Reportable 09/02/19 07:00 Toxic Vacuolation Not Reportable 09/02/19 07:00 Dohle Bodies Not Reportable 09/02/19 07:00 Pelger-Huet Anomaly Not Reportable 09/02/19 07:00 Bipin Rods Not Reportable 09/02/19 07:00 Platelet Estimate Consistent w auto 09/02/19 07:00 Clumped Platelets Not Reportable 09/02/19 07:00 Plt Clumps, EDTA Not Reportable 09/02/19 07:00 Large Platelets Not Reportable 09/02/19 07:00 Giant Platelets Not Reportable 09/02/19 07:00 Platelet Satelliting Not Reportable 09/02/19 07:00 Plt Morphology Comment Not Reportable 09/02/19 07:00 RBC Morphology Not Reportable 09/02/19 07:00 Dimorphic RBCs Not Reportable 09/02/19 07:00 Polychromasia Few 09/02/19 07:00 Hypochromasia Not Reportable 09/02/19 07:00 Poikilocytosis Not Reportable 09/02/19 07:00 Anisocytosis Not Reportable 09/02/19 07:00 Microcytosis Not Reportable 09/02/19 07:00 Macrocytosis Not Reportable 09/02/19 07:00 Spherocytes Not Reportable 09/02/19 07:00 Pappenheimer Bodies Not Reportable 09/02/19 07:00 Sickle Cells Not Reportable 09/02/19 07:00 Target Cells Not Reportable 09/02/19 07:00 Tear Drop Cells Not Reportable 09/02/19 07:00 Ovalocytes Not Reportable 09/02/19 07:00 Helmet Cells Not Reportable 09/02/19 07:00 Velez-[place] Bodies Not Reportable 09/02/19 07:00 [place] Rings Not Reportable 09/02/19 07:00 Terrell Cells Not Reportable 09/02/19 07:00 Bite Cells Not Reportable 09/02/19 07:00 Crenated Cell Not Reportable 09/02/19 07:00 Elliptocytes Not Reportable 09/02/19 07:00 Acanthocytes (Spur) Not Reportable 09/02/19 07:00 Rouleaux Not Reportable 09/02/19 07:00 Hemoglobin C Crystals Not Reportable 09/02/19 07:00 Schistocytes Not Reportable 09/02/19 07:00 Malaria parasites Not Reportable 09/02/19 07:00 [place]ante Bodies Not Reportable 09/02/19 07:00 Hem Pathologist Commnt No 09/02/19 07:00 D-Dimer 801.37 ng/mlDDU (0-234) H 09/02/19 00:16 Sodium 134 mmol/L (137-145) L 09/02/19 07:00 Potassium 3.9 mmol/L (3.6-5.0) 09/02/19 07:00 Chloride 99.0 mmol/L (98-107) 09/02/19 07:00 Carbon Dioxide 22 mmol/L (22-30) 09/02/19 07:00 Anion Gap 17 mmol/L 09/02/19 07:00 BUN 5 mg/dL (7-17) L 09/02/19 07:00 Creatinine 0.6 mg/dL (0.7-1.2) L 09/02/19 07:00 Estimated GFR > 60 ml/min 09/02/19 07:00 BUN/Creatinine Ratio 8 % 09/02/19 07:00 Glucose 97 mg/dL (65-100) 09/02/19 07:00 Lactic Acid 0.80 mmol/L (0.7-2.0) 09/02/19 02:21 Calcium 8.5 mg/dL (8.4-10.2) 09/02/19 07:00 Troponin T < 0.010 ng/mL (0.00-0.029) 09/02/19 03:39 NT-Pro-B Natriuret Pep 46.87 pg/mL (0-450) 09/02/19 00:56 HCG, Qual Negative (Negative) 09/02/19 00:16 Influenza A (Rapid) Negative (Negative) 09/02/19 Unknown Influenza B (Rapid) Negative (Negative) 09/02/19 Unknown [place]/IV: Voiding Method Toilet IV Catheter Type [Left Hand] INT / Saline Lock IV Catheter Type [Right INT / Saline Lock Antecubital] IV Catheter Type [Right Hand] INT / Saline Lock Active Medications - Current Medications Current Medications: Generic Name Dose Route Start Last Admin Trade Name Freq PRN Reason Stop Dose Admin Acetaminophen 650 mg 09/02/19 06:17 09/03/19 11:46 Tylenol PO 650 mg Q4H PRN Administration Pain MILD(1-3)/Fever >100.5/GAMBINO Albuterol/Ipratropium 1 ampul 09/02/19 08:00 09/04/19 02:35 Duoneb *Not For Prn Use* IH 1 ampul Q6HRT SHELLY Administration Azithromycin 500 mg 09/02/19 10:00 09/03/19 10:42 Zithromax PO 09/06/19 10:01 500 mg DAILY SHELLY Administration Benzonatate 100 mg 09/02/19 17:00 09/04/19 06:18 Tessalon Perles PO 100 mg Q8HR SHELLY Administration Enoxaparin Sodium 40 mg 09/02/19 10:00 09/03/19 10:42 Enoxaparin SUB-Q 40 mg QDAY SHELLY Administration Ceftriaxone Sodium 1 gm in 50 mls @ 100 mls/hr 09/02/19 10:00 09/03/19 10:42 Rocephin/Ns 1 Gm/50 Ml IV 100 mls/hr Q24HR SHELLY Administration Protocol Vancomycin HCl 1,250 mg/ 275 mls @ 137.5 mls/hr 09/03/19 06:00 09/04/19 06:18 Sodium Chloride IV 137.5 mls/hr Q12H SHELLY Administration Ondansetron HCl 4 mg 09/02/19 06:17 Zofran IV Q8H PRN Nausea And Vomiting Sodium Chloride 10 ml 09/02/19 10:00 09/04/19 00:30 Sodium Chloride Flush Syringe 10 Ml IV 10 ml BID SHELLY Administration Sodium Chloride 10 ml 09/02/19 06:17 Sodium Chloride Flush Syringe 10 Ml IV PRN PRN LINE FLUSH
[2019-09-04] MEDS: cefTRIAXone/NS 1 GM/50 ML 1 GM/50 ML BAG IV SCH (10:37)
[2019-09-04] MEDS: AZITHROMYCIN 250 MG TAB PO SCH (10:38)
[2019-09-04] MEDS: ENOXAPARIN 40 MG/0.4 ML INJ SUB-Q SCH (10:39)
[2019-09-05] MEDS: IPRATROPIUM/ALBUTEROL SULFATE 3 ML AMPUL.NEB IH SCH ×4 (01:16→19:21)
[2019-09-05] MEDS: ACETAMINOPHEN 325 MG TAB PO PRN (01:28)
[2019-09-05 04:39] LABS: Basophils # (Auto) 0.1 K/mm3 (0.0-0.1); Basophils % (Auto) 0.5 % (0.0-1.8); Eosinophils # (Auto) 0.2 K/mm3 (0.0-0.4); Eosinophils % (Auto) 2.1 % (0.0-4.3); Hematocrit 32.4 % (30.3-42.9); Hemoglobin 10.8 gm/dl (10.1-14.3); Lymphocytes # (Auto) 1.7 K/mm3 (1.2-5.4); Lymphocytes % (Auto) 17.5 % (13.4-35.0); Mean Corpuscular HGB Conc 33 % (30-34); Mean Corpuscular Volume 86 fl (79-97); Monocytes # (Auto) 0.6 K/mm3 (0.0-0.8); Monocytes % (Auto) 6.5 % (0.0-7.3); Platelet Count 474 K/mm3 (140-440); Red Blood Count 3.78 M/mm3 (3.65-5.03); Red Cell Distribution Width 15.5 % (13.2-15.2)
[2019-09-05 04:59] LABS: BUN/Creatinine Ratio 13; Blood Urea Nitrogen 8 mg/dL (7-17); Calcium 9.1 mg/dL (8.4-10.2); Hemolysis Index 2
[2019-09-05] MEDS: VANCOMYCIN 1,250 MG in SODIUM CHLORIDE 0.9% 250ML 250 ML IV SCH ×3 (05:35→21:16)
[2019-09-05] MEDS: BENZONATATE 100 MG CAP PO SCH ×3 (05:44→21:16)
[2019-09-05] MEDS ORDERED: IPRATROPIUM/ALBUTEROL SULFATE 3 ML AMPUL.NEB IH ONE (08:39)
[2019-09-05] MEDS: cefTRIAXone/NS 1 GM/50 ML 1 GM/50 ML BAG IV SCH (09:25)
[2019-09-05] MEDS: ENOXAPARIN 40 MG/0.4 ML INJ SUB-Q SCH (09:26)
[2019-09-05] MEDS: AZITHROMYCIN 250 MG TAB PO SCH (09:26)
--- NOTE | 2019-09-05 12:00 | Progress Note ---
Assessment and Plan Assessment and plan: Patient is a 44 yo woman with a history of hypertension and tobacco dependency who presents with sob, cough and fever. She travelled from [place] to [place] on Friday. Patient qualifies for sepsis. * 100.5F, WBC 23.4, HR 106, D-Dimer 801.37 * pCXR IMPRESSION: 1. Mild pulmonary vascular congestion. * CT chest without contrast IMPRESSION: 1. There is focal parenchymal disease in the right middle lobe as well as diffuse patchy parenchymal disease throughout both lower lobes, greater in the right lung base. The appearance is most suggestive for a multifocal bilateral pneumonia. * V/Q IMPRESSION: Matched defects in both lung bases. Low probability for pulmonary thromboembolism. * Rapid flu negative --Sepsis secondary to multifocal bilateral pneumonia; Fever , tachycardia , leukocytosis , bilateral pneumonia --Bilateral pneumonia; oxygen titrate O2 sats to more than 90%, droplet precautions IV antibiotics, follow cultures ID following Follow-up chest x-ray tomorrow --Leukocytosis; secondary to sepsis, trending down --Hypertension; moderate control Continue current antihypertensives --Elevated D-dimers; negative PE Check lower extremity venous Doppler to rule out DVT --DVT prophylaxis; Lovenox Monitor closely and adjust management as needed Plan of care reviewed with the patient and her nurse Disposition; follow clinically, follow repeat chest x-ray tomorrow Follow ID recommendations, discharge when stable and cleared by ID History Interval history: Patient seen and examined at the bedside in droplet isolation room this morning Patient's chart, medications, other healthcare providers recommendations reviewed Patient feels slightly better, vital signs reviewed Complains of mild cough, generalized weakness Patient is from out of town and is anxious to travel back home Alert and awake not in acute distress Hospitalist Physical - Constitutional Vitals: Temp Pulse Resp BP Pulse Ox 98.3 F 76 18 133/79 99 09/05/19 05:17 09/05/19 06:37 09/05/19 06:37 09/05/19 05:17 09/05/19 06:37 General appearance: Present: mild distress, well-nourished - EENT Eyes: Present: PERRL, EOM intact - Neck Neck: Present: supple, normal ROM - Respiratory Respiratory effort: normal Respiratory: bilateral: diminished, rhonchi, negative: rales, wheezing - Cardiovascular Rhythm: regular Heart Sounds: Present: S1 & S2 - Extremities Extremities: no ischemia, No edema - Abdominal General gastrointestinal: soft, non-tender, non-distended, normal bowel sounds - Integumentary Integumentary: Present: clear, warm - Psychiatric Psychiatric: appropriate mood/affect, cooperative - Neurologic Neurologic: CNII-XII intact, moves all extremities MIGUEL score - Miguel Score Age > 65: (0) No Aspirin use within the Past 7 Days: (0) No 3 or more CAD Risk Factors: (0) No 2 or more Angina events in past 24 hrs: (1) Yes Known CAD with more than 50% Stenosis: (0) No Elevated Cardiac Markers: (0) No ST Deviation Greater than 0.5mm: (0) No MIGUEL Score: 1 Results - Labs CBC & Chem 7: 09/05/19 04:08 09/05/19 04:08 Labs: Laboratory Last Values WBC 9.5 K/mm3 (4.5-11.0) 09/05/19 04:08 RBC 3.78 M/mm3 (3.65-5.03) 09/05/19 04:08 Hgb 10.8 gm/dl (10.1-14.3) 09/05/19 04:08 Hct 32.4 % (30.3-42.9) 09/05/19 04:08 MCV 86 fl (79-97) 09/05/19 04:08 MCH 29 pg (28-32) 09/05/19 04:08 MCHC 33 % (30-34) 09/05/19 04:08 RDW 15.5 % (13.2-15.2) H 09/05/19 04:08 Plt Count 474 K/mm3 (140-440) H 09/05/19 04:08 Lymph % (Auto) 17.5 % (13.4-35.0) 09/05/19 04:08 [place] % (Auto) 6.5 % (0.0-7.3) 09/05/19 04:08 Eos % (Auto) 2.1 % (0.0-4.3) 09/05/19 04:08 Baso % (Auto) 0.5 % (0.0-1.8) 09/05/19 04:08 Lymph # 1.7 K/mm3 (1.2-5.4) 09/05/19 04:08 [place] # 0.6 K/mm3 (0.0-0.8) 09/05/19 04:08 Eos # 0.2 K/mm3 (0.0-0.4) 09/05/19 04:08 Baso # 0.1 K/mm3 (0.0-0.1) 09/05/19 04:08 Add Manual Diff Complete 09/02/19 07:00 Total Counted 100 09/02/19 07:00 Seg Neutrophils % 73.4 % (40.0-70.0) H 09/05/19 04:08 Seg Neuts % (Manual) 93.0 % (40.0-70.0) H 09/02/19 07:00 Band Neutrophils % 1.0 % 09/02/19 07:00 Lymphocytes % (Manual) 2.0 % (13.4-35.0) L 09/02/19 07:00 Reactive Lymphs % (Man) 0 % 09/02/19 07:00 Monocytes % (Manual) 3.0 % (0.0-7.3) 09/02/19 07:00 Eosinophils % (Manual) 0 % (0.0-4.3) 09/02/19 07:00 Basophils % (Manual) 0 % (0.0-1.8) 09/02/19 07:00 Metamyelocytes % 1.0 % 09/02/19 07:00 Myelocytes % 0 % 09/02/19 07:00 Promyelocytes % 0 % 09/02/19 07:00 Blast Cells % 0 % 09/02/19 07:00 Nucleated RBC % Not Reportable 09/02/19 07:00 Seg Neutrophils # 7.0 K/mm3 (1.8-7.7) 09/05/19 04:08 Seg Neutrophils # Man 22.3 K/mm3 (1.8-7.7) H 09/02/19 07:00 Band Neutrophils # 0.2 K/mm3 09/02/19 07:00 Lymphocytes # (Manual) 0.5 K/mm3 (1.2-5.4) L 09/02/19 07:00 Abs React Lymphs (Man) 0.0 K/mm3 09/02/19 07:00 Monocytes # (Manual) 0.7 K/mm3 (0.0-0.8) 09/02/19 07:00 Eosinophils # (Manual) 0.0 K/mm3 (0.0-0.4) 09/02/19 07:00 Basophils # (Manual) 0.0 K/mm3 (0.0-0.1) 09/02/19 07:00 Metamyelocytes # 0.2 K/mm3 09/02/19 07:00 Myelocytes # 0.0 K/mm3 09/02/19 07:00 Promyelocytes # 0.0 K/mm3 09/02/19 07:00 Blast Cells # 0.0 K/mm3 09/02/19 07:00 WBC Morphology Not Reportable 09/02/19 07:00 Hypersegmented Neuts Not Reportable 09/02/19 07:00 Hyposegmented Neuts Not Reportable 09/02/19 07:00 Hypogranular Neuts Not Reportable 09/02/19 07:00 Smudge Cells Not Reportable 09/02/19 07:00 Toxic Granulation Not Reportable 09/02/19 07:00 Toxic Vacuolation Not Reportable 09/02/19 07:00 Dohle Bodies Not Reportable 09/02/19 07:00 Pelger-Huet Anomaly Not Reportable 09/02/19 07:00 Bipin Rods Not Reportable 09/02/19 07:00 Platelet Estimate Consistent w auto 09/02/19 07:00 Clumped Platelets Not Reportable 09/02/19 07:00 Plt Clumps, EDTA Not Reportable 09/02/19 07:00 Large Platelets Not Reportable 09/02/19 07:00 Giant Platelets Not Reportable 09/02/19 07:00 Platelet Satelliting Not Reportable 09/02/19 07:00 Plt Morphology Comment Not Reportable 09/02/19 07:00 RBC Morphology Not Reportable 09/02/19 07:00 Dimorphic RBCs Not Reportable 09/02/19 07:00 Polychromasia Few 09/02/19 07:00 Hypochromasia Not Reportable 09/02/19 07:00 Poikilocytosis Not Reportable 09/02/19 07:00 Anisocytosis Not Reportable 09/02/19 07:00 Microcytosis Not Reportable 09/02/19 07:00 Macrocytosis Not Reportable 09/02/19 07:00 Spherocytes Not Reportable 09/02/19 07:00 Pappenheimer Bodies Not Reportable 09/02/19 07:00 Sickle Cells Not Reportable 09/02/19 07:00 Target Cells Not Reportable 09/02/19 07:00 Tear Drop Cells Not Reportable 09/02/19 07:00 Ovalocytes Not Reportable 09/02/19 07:00 Helmet Cells Not Reportable 09/02/19 07:00 Vele[place] Bodies Not Reportable 09/02/19 07:00 [place] Rings Not Reportable 09/02/19 07:00 Terrell Cells Not Reportable 09/02/19 07:00 Bite Cells Not Reportable 09/02/19 07:00 Crenated Cell Not Reportable 09/02/19 07:00 Elliptocytes Not Reportable 09/02/19 07:00 Acanthocytes (Spur) Not Reportable 09/02/19 07:00 Rouleaux Not Reportable 09/02/19 07:00 Hemoglobin C Crystals Not Reportable 09/02/19 07:00 Schistocytes Not Reportable 09/02/19 07:00 Malaria parasites Not Reportable 09/02/19 07:00 [place] Bodies Not Reportable 09/02/19 07:00 Hem Pathologist Commnt No 09/02/19 07:00 D-Dimer 801.37 ng/mlDDU (0-234) H 09/02/19 00:16 Sodium 137 mmol/L (137-145) 09/05/19 04:08 Potassium 4.1 mmol/L (3.6-5.0) 09/05/19 04:08 Chloride 98.5 mmol/L (98-107) 09/05/19 04:08 Carbon Dioxide 25 mmol/L (22-30) 09/05/19 04:08 Anion Gap 18 mmol/L 09/05/19 04:08 BUN 8 mg/dL (7-17) 09/05/19 04:08 Creatinine 0.6 mg/dL (0.7-1.2) L 09/05/19 04:08 Estimated GFR > 60 ml/min 09/05/19 04:08 BUN/Creatinine Ratio 13 % 09/05/19 04:08 Glucose 102 mg/dL (65-100) H 09/05/19 04:08 Lactic Acid 0.80 mmol/L (0.7-2.0) 09/02/19 02:21 Calcium 9.1 mg/dL (8.4-10.2) 09/05/19 04:08 Troponin T < 0.010 ng/mL (0.00-0.029) 09/02/19 03:39 NT-Pro-B Natriuret Pep 46.87 pg/mL (0-450) 09/02/19 00:56 HCG, Qual Negative (Negative) 09/02/19 00:16 Nasal Screen MRSA (PCR) Negative (Negative) 09/03/19 15:03 Vancomycin Trough 7.8 ug/mL (5.0-20.0) 09/04/19 16:39 Influenza A (Rapid) Negative (Negative) 09/02/19 Unknown Influenza B (Rapid) Negative (Negative) 09/02/19 Unknown [place]/IV: Voiding Method Toilet IV Catheter Type [Right INT / Saline Lock Forearm] IV Catheter Type [Left Hand] INT / Saline Lock IV Catheter Type [Right INT / Saline Lock Antecubital] IV Catheter Type [Right Hand] INT / Saline Lock Active Medications - Current Medications Current Medications: Generic Name Dose Route Start Last Admin Trade Name Freq PRN Reason Stop Dose Admin Acetaminophen 650 mg 09/02/19 06:17 09/05/19 01:28 Tylenol PO 650 mg Q4H PRN Administration Pain MILD(1-3)/Fever >100.5/GAMBINO Albuterol/Ipratropium 1 ampul 09/02/19 08:00 09/05/19 08:47 Duoneb *Not For Prn Use* IH Not Given Q6HRT SHELLY Azithromycin 500 mg 09/02/19 10:00 09/05/19 09:26 Zithromax PO 09/06/19 10:01 500 mg DAILY SHELLY Administration Benzonatate 100 mg 09/02/19 17:00 09/05/19 05:44 Tessalon Perles PO 100 mg Q8HR SHELLY Administration Enoxaparin Sodium 40 mg 09/02/19 10:00 09/05/19 09:26 Enoxaparin SUB-Q 40 mg QDAY SHELLY Administration Ceftriaxone Sodium 1 gm in 50 mls @ 100 mls/hr 09/02/19 10:00 09/05/19 09:25 Rocephin/Ns 1 Gm/50 Ml IV 100 mls/hr Q24HR SHELLY Administration Protocol Vancomycin HCl 1,250 mg/ 275 mls @ 137.5 mls/hr 09/05/19 14:00 Sodium Chloride IV Q8HR SHELLY Ondansetron HCl 4 mg 09/02/19 06:17 Zofran IV Q8H PRN Nausea And Vomiting Sodium Chloride 10 ml 09/02/19 10:00 09/05/19 09:27 Sodium Chloride Flush Syringe 10 Ml IV 10 ml BID SHELLY Administration Sodium Chloride 10 ml 09/02/19 06:17 Sodium Chloride Flush Syringe 10 Ml IV PRN PRN LINE FLUSH
[2019-09-06] MEDS: IPRATROPIUM/ALBUTEROL SULFATE 3 ML AMPUL.NEB IH SCH ×3 (01:19→14:27)
[2019-09-06] MEDS: VANCOMYCIN 1,250 MG in SODIUM CHLORIDE 0.9% 250ML 250 ML IV SCH ×2 (06:01→14:58)
[2019-09-06] MEDS: BENZONATATE 100 MG CAP PO SCH ×2 (06:01→14:57)
--- NOTE | 2019-09-06 08:02 | Progress Note ---
Hospitalist Physical - Constitutional Vitals: Temp Pulse Resp BP Pulse Ox 98.3 F 91 H 17 133/79 99 09/05/19 05:17 09/05/19 19:21 09/05/19 19:21 09/05/19 05:17 09/05/19 06:37 General appearance: Present: mild distress, well-nourished MIGUEL score - Miguel Score Age > 65: (0) No Aspirin use within the Past 7 Days: (0) No 3 or more CAD Risk Factors: (0) No 2 or more Angina events in past 24 hrs: (1) Yes Known CAD with more than 50% Stenosis: (0) No Elevated Cardiac Markers: (0) No ST Deviation Greater than 0.5mm: (0) No MIGUEL Score: 1 Results - Labs CBC & Chem 7: 09/05/19 04:08 09/05/19 04:08 Labs: Laboratory Last Values WBC 9.5 K/mm3 (4.5-11.0) 09/05/19 04:08 RBC 3.78 M/mm3 (3.65-5.03) 09/05/19 04:08 Hgb 10.8 gm/dl (10.1-14.3) 09/05/19 04:08 Hct 32.4 % (30.3-42.9) 09/05/19 04:08 MCV 86 fl (79-97) 09/05/19 04:08 MCH 29 pg (28-32) 09/05/19 04:08 MCHC 33 % (30-34) 09/05/19 04:08 RDW 15.5 % (13.2-15.2) H 09/05/19 04:08 Plt Count 474 K/mm3 (140-440) H 09/05/19 04:08 Lymph % (Auto) 17.5 % (13.4-35.0) 09/05/19 04:08 [place] % (Auto) 6.5 % (0.0-7.3) 09/05/19 04:08 Eos % (Auto) 2.1 % (0.0-4.3) 09/05/19 04:08 Baso % (Auto) 0.5 % (0.0-1.8) 09/05/19 04:08 Lymph # 1.7 K/mm3 (1.2-5.4) 09/05/19 04:08 [place] # 0.6 K/mm3 (0.0-0.8) 09/05/19 04:08 Eos # 0.2 K/mm3 (0.0-0.4) 09/05/19 04:08 Baso # 0.1 K/mm3 (0.0-0.1) 09/05/19 04:08 Add Manual Diff Complete 09/02/19 07:00 Total Counted 100 09/02/19 07:00 Seg Neutrophils % 73.4 % (40.0-70.0) H 09/05/19 04:08 Seg Neuts % (Manual) 93.0 % (40.0-70.0) H 09/02/19 07:00 Band Neutrophils % 1.0 % 09/02/19 07:00 Lymphocytes % (Manual) 2.0 % (13.4-35.0) L 09/02/19 07:00 Reactive Lymphs % (Man) 0 % 09/02/19 07:00 Monocytes % (Manual) 3.0 % (0.0-7.3) 09/02/19 07:00 Eosinophils % (Manual) 0 % (0.0-4.3) 09/02/19 07:00 Basophils % (Manual) 0 % (0.0-1.8) 09/02/19 07:00 Metamyelocytes % 1.0 % 09/02/19 07:00 Myelocytes % 0 % 09/02/19 07:00 Promyelocytes % 0 % 09/02/19 07:00 Blast Cells % 0 % 09/02/19 07:00 Nucleated RBC % Not Reportable 09/02/19 07:00 Seg Neutrophils # 7.0 K/mm3 (1.8-7.7) 09/05/19 04:08 Seg Neutrophils # Man 22.3 K/mm3 (1.8-7.7) H 09/02/19 07:00 Band Neutrophils # 0.2 K/mm3 09/02/19 07:00 Lymphocytes # (Manual) 0.5 K/mm3 (1.2-5.4) L 09/02/19 07:00 Abs React Lymphs (Man) 0.0 K/mm3 09/02/19 07:00 Monocytes # (Manual) 0.7 K/mm3 (0.0-0.8) 09/02/19 07:00 Eosinophils # (Manual) 0.0 K/mm3 (0.0-0.4) 09/02/19 07:00 Basophils # (Manual) 0.0 K/mm3 (0.0-0.1) 09/02/19 07:00 Metamyelocytes # 0.2 K/mm3 09/02/19 07:00 Myelocytes # 0.0 K/mm3 09/02/19 07:00 Promyelocytes # 0.0 K/mm3 09/02/19 07:00 Blast Cells # 0.0 K/mm3 09/02/19 07:00 WBC Morphology Not Reportable 09/02/19 07:00 Hypersegmented Neuts Not Reportable 09/02/19 07:00 Hyposegmented Neuts Not Reportable 09/02/19 07:00 Hypogranular Neuts Not Reportable 09/02/19 07:00 Smudge Cells Not Reportable 09/02/19 07:00 Toxic Granulation Not Reportable 09/02/19 07:00 Toxic Vacuolation Not Reportable 09/02/19 07:00 Dohle Bodies Not Reportable 09/02/19 07:00 Pelger-Huet Anomaly Not Reportable 09/02/19 07:00 Bipin Rods Not Reportable 09/02/19 07:00 Platelet Estimate Consistent w auto 09/02/19 07:00 Clumped Platelets Not Reportable 09/02/19 07:00 Plt Clumps, EDTA Not Reportable 09/02/19 07:00 Large Platelets Not Reportable 09/02/19 07:00 Giant Platelets Not Reportable 09/02/19 07:00 Platelet Satelliting Not Reportable 09/02/19 07:00 Plt Morphology Comment Not Reportable 09/02/19 07:00 RBC Morphology Not Reportable 09/02/19 07:00 Dimorphic RBCs Not Reportable 09/02/19 07:00 Polychromasia Few 09/02/19 07:00 Hypochromasia Not Reportable 09/02/19 07:00 Poikilocytosis Not Reportable 09/02/19 07:00 Anisocytosis Not Reportable 09/02/19 07:00 Microcytosis Not Reportable 09/02/19 07:00 Macrocytosis Not Reportable 09/02/19 07:00 Spherocytes Not Reportable 09/02/19 07:00 Pappenheimer Bodies Not Reportable 09/02/19 07:00 Sickle Cells Not Reportable 09/02/19 07:00 Target Cells Not Reportable 09/02/19 07:00 Tear Drop Cells Not Reportable 09/02/19 07:00 Ovalocytes Not Reportable 09/02/19 07:00 Helmet Cells Not Reportable 09/02/19 07:00 Velez-Selby Bodies Not Reportable 09/02/19 07:00 [place] Rings Not Reportable 09/02/19 07:00 Terrell Cells Not Reportable 09/02/19 07:00 Bite Cells Not Reportable 09/02/19 07:00 Crenated Cell Not Reportable 09/02/19 07:00 Elliptocytes Not Reportable 09/02/19 07:00 Acanthocytes (Spur) Not Reportable 09/02/19 07:00 Rouleaux Not Reportable 09/02/19 07:00 Hemoglobin C Crystals Not Reportable 09/02/19 07:00 Schistocytes Not Reportable 09/02/19 07:00 Malaria parasites Not Reportable 09/02/19 07:00 Devante Bodies Not Reportable 09/02/19 07:00 Hem Pathologist Commnt No 09/02/19 07:00 D-Dimer 801.37 ng/mlDDU (0-234) H 09/02/19 00:16 Sodium 137 mmol/L (137-145) 09/05/19 04:08 Potassium 4.1 mmol/L (3.6-5.0) 09/05/19 04:08 Chloride 98.5 mmol/L (98-107) 09/05/19 04:08 Carbon Dioxide 25 mmol/L (22-30) 09/05/19 04:08 Anion Gap 18 mmol/L 09/05/19 04:08 BUN 8 mg/dL (7-17) 09/05/19 04:08 Creatinine 0.6 mg/dL (0.7-1.2) L 09/05/19 04:08 Estimated GFR > 60 ml/min 09/05/19 04:08 BUN/Creatinine Ratio 13 % 09/05/19 04:08 Glucose 102 mg/dL (65-100) H 09/05/19 04:08 Lactic Acid 0.80 mmol/L (0.7-2.0) 09/02/19 02:21 Calcium 9.1 mg/dL (8.4-10.2) 09/05/19 04:08 Troponin T < 0.010 ng/mL (0.00-0.029) 09/02/19 03:39 NT-Pro-B Natriuret Pep 46.87 pg/mL (0-450) 09/02/19 00:56 HCG, Qual Negative (Negative) 09/02/19 00:16 Nasal Screen MRSA (PCR) Negative (Negative) 09/03/19 15:03 Vancomycin Trough 7.8 ug/mL (5.0-20.0) 09/04/19 16:39 Influenza A (Rapid) Negative (Negative) 09/02/19 Unknown Influenza B (Rapid) Negative (Negative) 09/02/19 Unknown [place]/IV: Voiding Method Toilet IV Catheter Type [Right INT / Saline Lock Forearm] IV Catheter Type [Left Hand] INT / Saline Lock IV Catheter Type [Right INT / Saline Lock Antecubital] IV Catheter Type [Right Hand] INT / Saline Lock Active Medications - Current Medications Current Medications: Generic Name Dose Route Start Last Admin Trade Name Freq PRN Reason Stop Dose Admin Acetaminophen 650 mg 09/02/19 06:17 09/05/19 01:28 Tylenol PO 650 mg Q4H PRN Administration Pain MILD(1-3)/Fever >100.5/GAMBINO Albuterol/Ipratropium 1 ampul 09/02/19 08:00 09/06/19 01:19 Duoneb *Not For Prn Use* IH Not Given Q6HRT SHELLY Azithromycin 500 mg 09/02/19 10:00 09/05/19 09:26 Zithromax PO 09/06/19 10:01 500 mg DAILY SHELLY Administration Benzonatate 100 mg 09/02/19 17:00 09/06/19 06:01 Tessalon Perles PO 100 mg Q8HR SHELLY Administration Enoxaparin Sodium 40 mg 09/02/19 10:00 09/05/19 09:26 Enoxaparin SUB-Q 40 mg QDAY SHELLY Administration Ceftriaxone Sodium 1 gm in 50 mls @ 100 mls/hr 09/02/19 10:00 09/05/19 09:25 Rocephin/Ns 1 Gm/50 Ml IV 100 mls/hr Q24HR SHELLY Administration Protocol Vancomycin HCl 1,250 mg/ 275 mls @ 137.5 mls/hr 09/05/19 14:00 09/06/19 06:01 Sodium Chloride IV 137.5 mls/hr Q8HR SHELLY Administration Ondansetron HCl 4 mg 09/02/19 06:17 Zofran IV Q8H PRN Nausea And Vomiting Sodium Chloride 10 ml 09/02/19 10:00 09/05/19 21:17 Sodium Chloride Flush Syringe 10 Ml IV 10 ml BID HSELLY Administration Sodium Chloride 10 ml 09/02/19 06:17 Sodium Chloride Flush Syringe 10 Ml IV PRN PRN LINE FLUSH
[2019-09-06] MEDS: cefTRIAXone/NS 1 GM/50 ML 1 GM/50 ML BAG IV SCH (11:09)
[2019-09-06] MEDS: ENOXAPARIN 40 MG/0.4 ML INJ SUB-Q SCH (11:10)
[2019-09-06] MEDS: AZITHROMYCIN 250 MG TAB PO SCH (11:10)
[2019-09-06 12:09] VITALS: BP 146/98
--- NOTE | 2019-09-06 13:43 | Vascular Lab Report ---
DUPLEX DOPPLER LOWER EXTREMITY VEINS, BILATERAL INDICATION: Elevated D-dimers, evaluate for DVT. TECHNIQUE: Duplex doppler imaging was performed through the veins of both lower extremities using venous abhi merle and other maneuvers. COMPARISON: No relevant prior imaging study available. FINDINGS: Right Common femoral vein: Negative. Right Superficial femoral vein: Negative. Right Popliteal vein: Negative. Right Calf veins: Negative. Left Common femoral vein: Negative. Left Superficial femoral vein: Negative. Left Popliteal vein: Negative. Left Calf veins: Negative. Additional findings: None.. IMPRESSION: 1. No sonographic evidence for DVT in either lower extremity. Signer Name: Renny Salcedo MD Signed: 09/06/2019 1:38 PM Workstation Name: [id number]
--- NOTE | 2019-09-06 15:08 | Progress Note ---
Assessment and Plan Cultures: blood culture: in process Rapid Flu negative MRSA nasal swab: Negative A/P: 44-year-old female with hypertension who is originally from [place] came into the emergency room yesterday with complaints of cough, fever and shortness of breath. Her symptoms have been going on for almost 2 weeks and gradually worsening: #Sepsis secondary to pneumonia: Symptoms present for 14 days and gradually worsening. Concerning for possible post influenza pneumonia. Very likely bacterial, improving on current abx. Recs: Continue ceftriaxone, azithromycin Stop vancomycin Low suspicion for viral pneumonia at this time f/u sputum culture, Legionella and pneumococcal urinary antigens Continue contact and droplet precautions for now Okay for discharge with cefdinir 300 mg every 12 hours to complete 7 days. Stop date 09/09/2019 We will sign off for now. Please call with any new questions Sonny Atkins MD [facility] M: [phone] O: [phone] F: [phone] Subjective Date of service: 09/06/19 Interval history: Feels improved at present time. Afebrile now, with an improved white count. MRSA nasal swab negative. Objective - Exam Narrative Exam: Physical Exam: Constitutional: Alert, cooperative. No acute distress Head, Ears, Nose: Normocephalic, atraumatic. External ears, nose normal Eyes: Conjunctivae/corneas clear. No icterus. No ptosis. Neck: Supple, no meningeal signs Oral: dentition fair, no thrush Cardiovascular: S1, S2 normal. Respiratory: Good air entry, clear to auscultation bilaterally GI: Soft, non-tender; bowel sounds normal. No peritoneal signs. Musculoskeletal: No pedal edema, no cyanosis. Skin: No rash or abscess Hem/Lymphatic: No palpable cervical or supraclavicular nodes. No lymphangitis Psych: Mood ok. Affect normal Neurological: Awake, alert, oriented. No gross abnormality - Constitutional Vitals: Vital Signs Temp Pulse Resp BP Pulse Ox 98.3 F 93 H 16 146/98 96 09/05/19 17:19 09/06/19 14:40 09/06/19 14:40 09/05/19 17:19 09/05/19 17:19 Temperature -Last 24 Hours Temperature 98.3 F - Labs CBC & Chem 7: 09/05/19 04:08 09/05/19 04:08
--- NOTE | 2019-09-06 17:02 | Discharge Summary ---
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 Hospitalization Condition: Serious Disposition: DC-01 TO HOME OR SELFCARE Time spent for discharge: 32 min Core Measure Documentation - Palliative Care Palliative Care/ Comfort Measures: Not Applicable - Core Measures Any of the following diagnoses?: none Exam - Constitutional Vitals: Temp Pulse Resp BP Pulse Ox 98.3 F 93 H 16 146/98 96 09/05/19 17:19 09/06/19 14:40 09/06/19 14:40 09/05/19 17:19 09/05/19 17:19 General appearance: Present: no acute distress, well-nourished - EENT Eyes: Present: PERRL, EOM intact - Neck Neck: Present: supple, normal ROM - Respiratory Respiratory effort: normal Respiratory: negative: rales, rhonchi, wheezing - Cardiovascular Rhythm: regular Heart Sounds: Present: S1 & S2 - Extremities Extremities: no ischemia, No edema - Abdominal General gastrointestinal: Present: soft, non-tender, non-distended, normal bowel sounds - Integumentary Integumentary: Present: clear, warm - Musculoskeletal Musculoskeletal: strength equal bilaterally - Psychiatric Psychiatric: appropriate mood/affect, cooperative - Neurologic Neurologic: moves all extremities Plan Activity: advance as tolerated Diet: regular Additional Instructions: Follow primary care physician within 1 week. Smoking cessation. Advised to quit recreational drug use Follow up with: [facility] [Outside] - 2-3 Days ARIC IZAGUIRRE MD [Staff Physician] - 2-3 Days Prescriptions: Cefdinir 300 mg PO BID #14 capsule Miconazole [Monistat] 100 mg VG QHS #7 supp.vag Benzonatate [Tessalon Perles] 100 mg PO Q8HR #15 capsule Acetaminophen/Codeine [Tylenol /Codeine # 3 tab] 1 tab PO BID PRN #6 tablet PRN Reason: Pain , Severe (7-10)
== END 2019-09-06 18:30 | disposition home or self-care (01) | DRG 871 ==
LOC: ED 21:33 → 3A 09-02 06:17
PROVIDERS: ADMIT Internal Medicine; ATTEND Internal Medicine
DX: A41.9 Sepsis, unspecified organism (principal); J18.9 Pneumonia, unspecified organism; F17.210 Nicotine dependence, cigarettes, uncomplicated; J40 Bronchitis, not specified as acute or chronic; I10 Essential (primary) hypertension; K21.9 Gastro-esophageal reflux disease without esophagitis; Z71.6 Tobacco abuse counseling; Z88.2 Allergy status to sulfonamides; Z91.013 Allergy to seafood; Z82.49 Family history of ischemic heart disease and other diseases of the circulatory system
CPT/HCPCS: 36415; 71045; 71250; 78582; 80048; 80202; 82140; 83880; 84484; 84703; 85007; 85025; 85379; 87040; 87070; 87205; 87400; 87449; 87641; 93005; 93010; 93970; 94640; 96365; 96366; 99406; G0378; A9540; A9558; J0456; J0696; J1650; J2270; J3370; J7040; J7050